=== PATIENT | male | born 1950 | race Caucasian/White ===

== ENCOUNTER 2017-03-15 19:27 | Emergency (ER) | payer OTHER ==
--- NOTE | 2017-03-15 19:49 | EDPHY ---
H & P Stated Complaint: LLE weakness Time Seen by Provider: 03/15/17 19:38 HPI/ROS: CHIEF COMPLAINT: Left leg weakness, paresthesias left hand HISTORY OF PRESENT ILLNESS: The patient presents to the ED with left leg weakness. The patient reports his symptoms began at 6:15 p.m. this evening. The patient did have some paresthesias in his left hand. The patient has no complaints of an acute headache. The patient denies prior history of stroke or TIA. The patient denies history of hypertension, diabetes or hyperlipidemia. The patient has no history of neck pain, fall or cervical manipulation. REVIEW OF SYSTEMS: A comprehensive 10 point review of systems is otherwise negative aside from elements mentioned in the history of present illness. 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 Exam Limitations: No limitations - Personal History Current Tetanus/Diphtheria Vaccine: Unsure Current Tetanus Diphtheria and Acellular Pertussis (TDAP): Unsure - Medical/Surgical History Hx Asthma: No Hx Chronic Respiratory Disease: No Hx Diabetes: No Hx Cardiac Disease: No Hx Renal Disease: No Hx Cirrhosis: No Hx Alcoholism: No Hx HIV/AIDS: No Hx Splenectomy or Spleen Trauma: No Other PMH: R ankle surgery, L eye surgery - Social History Smoking Status: Never smoked - Physical Exam Exam: General Appearance: Alert, no distress Eyes: Pupils equal and round no pallor or injection ENT, Mouth: Mucous membranes moist Respiratory: There are no retractions, lungs are clear to auscultation Cardiovascular: Regular rate and rhythm Gastrointestinal: Abdomen is soft and nontender, no masses, bowel sounds normal Neurological: Alert and oriented x4, 5/5 strength noted all 4 extremities, slightly decreased strength noted in left hip with flexion Skin: Warm and dry, no rashes Musculoskeletal: Neck is supple nontender Extremities: symmetrical, full range of motion Constitutional: Initial Vital Signs Temperature (C) 36.9 C 03/15/17 19:31 Heart Rate 66 03/15/17 19:31 Respiratory Rate 16 03/15/17 19:31 Blood Pressure 121/76 H 03/15/17 19:31 O2 Sat (%) 96 03/15/17 19:31 O2 Delivery Mode Room Air Allergies/Adverse Reactions: No Known Allergies Allergy (Unverified 03/15/17 19:30) Home Medications: Medication Instructions Recorded NK [No Known Home Meds] 03/15/17 Medical Decision Making - Diagnostics EKG Interpretation: EKG: Complete interpretation has been separately recorded in the [facility] archive. Summary impression: Sinus rhythm, rate 70 Imaging Results: Imaging Impressions Head CT 03/15/17 19:45 Impression: Negative for hemorrhage or mass lesion. Arterial calcifications are noted. Results called and discussed with Jed Pascal on 03/15/2017 at 20:10 ED Course/Re-evaluation: The patient presents to the ED with mild limb ataxia and left leg weakness which began at 6:15 a.m. this evening. The patient was noted to have an NIH stroke scale of 2-3 on my examination. Consultation was made with a neurologist Dr. Toro at [facility]. She evaluated the patient. She felt the patient did meet criteria for tPA. The patient received IV tPA. We do not have a ICU bed available at our institution this evening. The patient will be transferred to [facility] for inpatient care and stabilization. 9:00 p.m.: The patient will be transferred via critical care transport to the ICU at [facility]. The patient has no deterioration in his neurologic status in the emergency department. Differential Diagnosis: Differential diagnosis considered includes acute ischemic stroke, hemorrhagic stroke, TIA, atypical migraine Critical Care Time: Critical care time exclusive of procedures and exclusive of the PA's time was 45 minutes, performed by myself, Jed Pascal MD. - Data Points Laboratory Results: Laboratory Results 03/15/17 19:43 03/15/17 19:43 03/15/17 03/15/17 03/15/17 19:43 19:43 19:39 WBC 5.67 10^3/uL 10^3/uL (3.80-9.50) RBC 4.82 10^6/uL 10^6/uL (4.40-6.38) Hgb 13.5 g/dL L g/dL (13.7-17.5) POC Hgb 15.0 gm/dL gm/dL (13.7-17.5) Hct 40.3 % % (40.0-51.0) POC Hct 44 % % (40-51) MCV 83.6 fL fL (81.5-99.8) MCH 28.0 pg pg (27.9-34.1) MCHC 33.5 g/dL g/dL (32.4-36.7) RDW 16.8 % H % (11.5-15.2) Plt Count 347 10^3/uL 10^3/uL (150-400) MPV 9.6 fL fL (8.7-11.7) Neut % (Auto) 48.5 % % (39.3-74.2) Lymph % (Auto) 37.6 % % (15.0-45.0) Dubois % (Auto) 9.2 % % (4.5-13.0) Eos % (Auto) 3.2 % % (0.6-7.6) Baso % (Auto) 1.1 % % (0.3-1.7) Nucleat RBC Rel Count 0.0 % % (0.0-0.2) Absolute Neuts (auto) 2.76 10^3/uL 10^3/uL (1.70-6.50) Absolute Lymphs (auto) 2.13 10^3/uL 10^3/uL (1.00-3.00) Absolute Monos (auto) 0.52 10^3/uL 10^3/uL (0.30-0.80) Absolute Eos (auto) 0.18 10^3/uL 10^3/uL (0.03-0.40) Absolute Basos (auto) 0.06 10^3/uL 10^3/uL (0.02-0.10) Absolute Nucleated RBC 0.00 10^3/uL 10^3/uL (0-0.01) Immature Gran % 0.4 % % (0.0-1.1) Immature Gran # 0.02 10^3/uL 10^3/uL (0.00-0.10) POC Sodium 143 mEq/L mEq/L (134-144) Sodium 141 mEq/L mEq/L (134-144) POC Potassium 3.6 mEq/L mEq/L (3.3-5.0) Potassium 3.9 mEq/L mEq/L (3.5-5.2) POC Chloride 103 mEq/L mEq/L (97-110) Chloride 103 mEq/L mEq/L (97-110) Carbon Dioxide 24 mEq/l mEq/l (22-31) Anion Gap 14 mEq/L mEq/L (8-16) POC BUN 15 mg/dL mg/dL (7-23) BUN 16 mg/dL mg/dL (7-23) Creatinine 0.9 mg/dL mg/dL (0.7-1.3) POC Creatinine 0.9 mg/dL mg/dL (0.7-1.3) Estimated GFR > 60 Glucose 98 mg/dL mg/dL (70-100) POC Glucose 101 mg/dL H mg/dL (70-100) Calcium 10.1 mg/dL mg/dL (8.5-10.4) Point of Care Test Results: 03/15/17 19:39 POC Sodium 143 POC Potassium 3.6 POC Chloride 103 POC BUN 15 POC Creatinine 0.9 POC Glucose 101 H Departure - Departure Disposition: Acute Care Hospital Not [facility] Clinical Impression: Acute ischemic stroke Condition: Critical Referrals: Dru Duggan DO [Primary Care Provider] - As per Instructions
[2017-03-15 19:53] LABS: % IMMATURE GRANULYOCYTES 0.4 % (0.0-1.1); ABSOLUTE IMMATURE GRANULOCYTES 0.02 10^3/uL (0.00-0.10); ADD DIFF? NO; ADD MORPH? NO; ADD SCAN? NO; ATYPICAL LYMPHOCYTE FLAG 10 (0-99); FRAGMENT RBC FLAG 0 (0-99); HEMATOCRIT 40.3 % (40.0-51.0); HEMOGLOBIN 13.5 g/dL (13.7-17.5); LEFT SHIFT FLG 0 (0-99); LIPEMIA HEMOLYSIS FLAG 80 (0-99); MEAN CELL HEMOGLOBIN CONCENTR. 33.5 g/dL (32.4-36.7); MEAN CELL VOLUME 83.6 fL (81.5-99.8); MEAN PLATELET VOLUME 9.6 fL (8.7-11.7); PLATELET CLUMPS FLAG 0 (0-99); PLATELET COUNT 347 10^3/uL (150-400); RED BLOOD CELL COUNT 4.82 10^6/uL (4.40-6.38); RED CELL DISTRIBUTION WIDTH 16.8 % (11.5-15.2)
[2017-03-15] MEDS ORDERED: ALTEPLASE 100 MG/100 ML VIAL IV ONE ×2 (20:11→20:40)
[2017-03-15 20:13] LABS: ANION GAP 14 mEq/L (8-16); CALCIUM 10.1 mg/dL (8.5-10.4); CARBON DIOXIDE 24 mEq/l (22-31); CHLORIDE 103 mEq/L (97-110); CREATININE 0.9 mg/dL (0.7-1.3); GLOMERULAR FILTRATION RATE > 60; GLUCOSE 98 mg/dL (70-100); POTASSIUM 3.9 mEq/L (3.5-5.2); SODIUM 141 mEq/L (134-144)
--- NOTE | 2017-03-15 20:20 | CPEKG ---
Heart Rate: 70 RR Interval: 857 P-R Interval: 180 QRSD Interval: 92 QT Interval: 420 QTC Interval: 454 P Sturdivant: 24 QRS Sturdivant: -22 T Wave Sturdivant: 16 EKG Severity - OTHERWISE NORMAL ECG - EKG Impression: SINUS RHYTHM Electronically Signed By: Jed Pascal 16-Mar-2017 00:16:13
[2017-03-15] MEDS ORDERED: NS 50 ML IV ONE (20:40)
[2017-03-15] MEDS ORDERED: ALTEPLASE 1 MG/ML SYR IV ONE (20:40)
[2017-03-15 20:55] VITALS: O2SAT 98
[2017-03-15 21:04] VITALS: BP 147/87; PULSE 70; RESP 16; TEMP 97.7
== END 2017-03-15 21:04 | disposition short-term general hospital (02) ==
DX: I63.9 Cerebral infarction, unspecified (principal)
CPT/HCPCS: 82947-QW; J2997

== ENCOUNTER 2017-12-20 19:12 | Emergency (ER) | payer OTHER ==
--- NOTE | 2017-12-20 19:43 | EDPHY ---
H & P Stated Complaint: inj r leg skiing 1 wk ago/still swollen Time Seen by Provider: 12/20/17 19:43 HPI/ROS: CHIEF COMPLAINT: Right calf pain HISTORY OF PRESENT ILLNESS: The patient presents to the ED with complaints of right calf pain. He injured himself fall skiing a week ago. The patient does have a history of a stroke in his a known PFO. He currently takes a daily aspirin. He is concerned about the possibility of a DVT in his leg. He denies any chest pain or shortness of breath. He denies any acute headache, numbness or weakness. REVIEW OF SYSTEMS: A comprehensive 10 point review of systems is otherwise negative aside from elements mentioned in the history of present illness. 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 - Personal History Current Tetanus/Diphtheria Vaccine: Unsure - Medical/Surgical History Hx Asthma: No Hx Chronic Respiratory Disease: No Hx Diabetes: No Hx Cardiac Disease: No Hx Renal Disease: No Hx Cirrhosis: No Hx Alcoholism: No Hx HIV/AIDS: No Hx Splenectomy or Spleen Trauma: No Other PMH: R ankle surgery, L eye surgery stroke - Social History Smoking Status: Never smoked - Physical Exam Exam: General Appearance: Alert, no distress Eyes: Pupils equal and round no pallor or injection ENT, Mouth: Mucous membranes moist Respiratory: There are no retractions, lungs are clear to auscultation Cardiovascular: Regular rate and rhythm Gastrointestinal: Abdomen is soft and nontender, no masses, bowel sounds normal Neurological: 5/5 strength all 4 extremities, sensation intact to light touch Skin: Warm and dry, no rashes Musculoskeletal: Neck is supple nontender Extremities: Tenderness to palpation right calf, no appreciable asymmetry Constitutional: Initial Vital Signs Temperature (C) 36.8 C 12/20/17 19:17 Heart Rate 85 12/20/17 19:17 Respiratory Rate 17 12/20/17 19:17 Blood Pressure 102/79 12/20/17 19:17 O2 Sat (%) 95 12/20/17 19:17 O2 Delivery Mode Room Air Allergies/Adverse Reactions: No Known Allergies Allergy (Verified 12/20/17 19:14) Home Medications: Medication Instructions Recorded Aspirin 81mg (*) 12/20/17 Medical Decision Making - Diagnostics Imaging Results: Imaging Impressions Extremity Venous Study 12/20/17 19:43 Impression: 1. There is no sonographic evidence of deep or superficial vein thrombosis in the right lower extremity. 2. There is a fluid collection which may represent a seroma along the posterior margin of the medial gastrocnemius muscle, where the patient is most uncomfortable. Findings were discussed with Sudha Lord PA-C, who will convey the information to Jed Pascal MD at 20:40, on 12/20/2017. ED Course/Re-evaluation: The patient presents the ED for evaluation of right calf pain following a twisting injury a week ago. The patient was concerned about the possibility of DVT. He had no evidence of arterial insufficiency noted on examination was neurologically intact. The patient has no significant physical exam findings suggestive of a DVT. He did undergo a Doppler ultrasound lower extremity which does demonstrate a small hematoma without evidence of DVT or John cyst. The patient has been advised of the findings. The patient has been instructed to repeat his ultrasound in 2 weeks if he continues to have any ongoing calf pain. He should return to the ED for markedly worsening pain, swelling, chest pain or shortness of breath. Differential Diagnosis: Differential diagnosis considered includes DVT, arterial insufficiency, venous insufficiency, myofascial strain Departure - Departure Disposition: Home, Routine, Self-Care Clinical Impression: Strain of calf muscle Qualifiers: Encounter type: initial encounter Laterality: right Qualified Code(s): S86.811A - Strain of other muscle(s) and tendon(s) at lower leg level, right leg , initial encounter Condition: Good Instructions: Musculoskeletal Pain (ED) Additional Instructions: 1. Your ultrasound demonstrates no evidence of an obvious DVT but does demonstrate some fluid consistent with a possible muscle strain. 2. Tylenol and ibuprofen as needed for pain. 3. I do recommend a repeat ultrasound in 2 weeks if you are continue to have any symptoms. 4. Please return to the ED immediately for any markedly worsening symptoms, chest pain, shortness of breath or acute neurologic symptoms. Referrals: Dru Duggan DO [Primary Care Provider] - As per Instructions
[2017-12-20 21:04] VITALS: BP 136/84; PULSE 79; RESP 16; TEMP 99; O2SAT 96
== END 2017-12-20 21:03 | disposition home or self-care (01) ==
DX: S86.811A Strain of other muscle(s) and tendon(s) at lower leg level, right leg, initial encounter (principal); V00.321A Fall from snow-skis, initial encounter; Y99.8 Other external cause status; Y93.23 Activity, snow (alpine) (downhill) skiing, snowboarding, sledding, tobogganing and snow tubing